=== PATIENT | male | born 1955 | race African-American/Black ===

== ENCOUNTER 2017-05-28 12:52 | Emergency (ER) | payer OTHER ==
[~2017-05-28] VITALS: Ht 180.3 cm; Wt 78.0 kg
--- NOTE | 2017-05-28 13:04 | PHYS DOC ---
Adult General Chief Complaint Chief Complaint: LACERATION/AVULSION HPI HPI Patient is a 61 year old -[place] male who presents with she just left hand. He was using a portable tooth grinder grinding off screws and would when the blade shattered and it kicked back on him. He presents to ER with laceration between his thumb and index finger and a superficial one on his thumb. He states this happened just prior to arrival. He is unsure when his last tetanus shot was. He states he can feel his thumb and move it but doesn't want to at this time. He is right hand dominant. Review of Systems Review of Systems Constitutional: Denies fever or chills [] Eyes: Denies change in visual acuity, redness, or eye pain [] HENT: Denies nasal congestion or sore throat [] Respiratory: Denies cough or shortness of breath [] Cardiovascular: No additional information not addressed in HPI [] GI: Denies abdominal pain, nausea, vomiting, bloody stools or diarrhea [] : Denies dysuria or hematuria [] Musculoskeletal: Denies back pain or joint pain [] Integument: Denies rash or skin lesions [] Neurologic: Denies headache, focal weakness or sensory changes [] Endocrine: Denies polyuria or polydipsia [] Current Medications Current Medications Current Medications Medications (Trade) Dose Ordered Sig/Valarie Start Time Stop Time Status Last Admin Dose Admin Acetaminophen/ Hydrocodone Bitart (Lortab 5/325) 2 tab 1X ONCE 05/28/17 13:30 05/28/17 13:31 DC 05/28/17 13:28 2 TAB Amoxicillin/ Clavulanate Potassium (Augmentin 875/ 125mg) 1 tab 1X ONCE 05/28/17 15:00 05/28/17 15:01 DC Diphtheria/ Tetanus/Acell Pertussis (Boostrix) 0.5 ml ONCE ONCE 05/28/17 13:15 05/28/17 13:16 DC 05/28/17 13:50 0.5 ML Lidocaine/Sodium Bicarbonate (Buffered Lidocaine 1%) 20 ml 1X ONCE 05/28/17 13:45 05/28/17 13:46 DC 05/28/17 13:49 20 ML Neomycin/ Polymyxin/ Bacitracin (Triple Antibiotic Ointment) 1 t STK-MED ONCE 05/28/17 15:04 05/28/17 15:05 DC Allergies Allergies Allergies Coded Allergies Type Severity Reaction Last Updated Verified No Known Drug Allergies 05/28/17 No Physical Exam Physical Exam Constitutional: Well developed, well nourished, no acute distress, non-toxic appearance. [] HENT: Normocephalic, atraumatic, bilateral external ears normal, oropharynx moist, no oral exudates, nose normal. [] Eyes: PERRLA, EOMI, conjunctiva normal, no discharge. [] Neck: Normal range of motion, no tenderness, supple, no stridor. [] Cardiovascular:Heart rate regular rhythm, no murmur [] Lungs & Thorax: Bilateral breath sounds clear to auscultation [] Abdomen: Bowel sounds normal, soft, no tenderness, no masses, no pulsatile masses. [] Skin: 7 cm laceration to the left thenar eminence, sensation intact to light touch of the radial nerve, able to flex and extend at the MCP and DIP joint, able to duct and abduct his thumb, able to make the "okay sign", strength with these are 5 out of 5. 2 cm laceration of the distal left thumb. Back: No tenderness, no CVA tenderness. [] Extremities: No tenderness, no cyanosis, no clubbing, ROM intact, no edema. [] Neurologic: Alert and oriented X 3, normal motor function, normal sensory function, no focal deficits noted. [] Psychologic: Affect normal, judgement normal, mood normal. [] Current Patient Data Vital Signs Vital Signs Date Time Temp Pulse Resp B/P (MAP) Pulse Ox O2 Delivery O2 Flow Rate FiO2 05/28/17 13:01 80 20 Room Air 05/28/17 13:01 98.4 140/82 (101) 98 98.4 EKG EKG [] Radiology/Procedures Radiology/Procedures [facility] [address] [place] [address] IMAGING REPORT Signed PATIENT: MARQUEZ RON ACCOUNT: [id number] : 1955 LOCATION: ER AGE: 61 SEX: M EXAM STATUS: REG ER ORD. PHYSICIAN: SHREYAS LAY MD REASON: laceration PROCEDURE: HAND LEFT 3V Left hand, 3 views, 05/28/2017: History: Thumb laceration No fracture or dislocation is identified. There is a tiny elongated 1 mm foreign body projected over the superficial soft tissues along the volar aspect of the distal end of the thumb. A slightly small radiopacity is projected over the soft tissues of the distal middle finger. There are gas collections in the soft tissues between the first and second metacarpals compatible with a laceration in that region. There are several tiny faint radiopacities projected over this region which may represent debris in the wound or on the surface of the patient. IMPRESSION: 1. No acute bony abnormality is detected. 2. Tiny radiopacities projected over the soft tissues as described above. DICTATED and SIGNED BY: CIRO GROVER MD DATE: 05/28/17 1324 CC: SHREYAS LAY MD; UNKNOWN PCP NAME ~ Impressions: hand laceration Course & Med Decision Making Course & Med Decision Making Pertinent Labs and Imaging studies reviewed. (See chart for details) Patient has tooth lacerations of his left hand, the first one is a 7 cm laceration to the base of his left thumb sensation and motor is intact, 2 similar laceration of the distal left thumb. His tetanus was updated, x-rays were obtained did not show any fractures. He had extensive irrigation of both lacerations secondary to his mechanism of a grinding stone and sawdust. These were repaired and he was given Augmentin his first dose in the ER and is being discharged with 10 additional days. He's had the sutures removed in 9-10 days. Return precautions given. He is agreeable plans being discharged in stable condition at this time. Dragon Disclaimer Dragon Disclaimer This electronic medical record was generated, in whole or in part, using a voice recognition dictation system. Departure Departure Impression: Primary Impression: Hand laceration Disposition: 01 HOME, SELF-CARE Condition: STABLE Referrals: CHRISTOPHE MCCRACKEN MD Patient Instructions: Laceration Care, Adult, [id number] Additional Instructions: You had an extensive laceration of your left hand and it does not appear that you injured any nerves or muscles or tendons within your hand. You have 12 stitches placed in your base of your left thumb and 3 at the tip of your left thumb. You will need to keep this area clean and free of dirt and debris. We'll need to keep covered and use triple antibiotic ointment on it at least twice a day. You will need take oral antibiotics for the next 10 days. He will need to return back to the ER in 10 days to have these stitches removed. You have a total of 15 stitches that need to be taken out in 9-10 days from now. If you notice any signs of infection, redness, you have fever, you have increasing pain or any other concerns please return to the ER sooner. You can follow-up with Dr. Mccracken who is our orthopedic surgeon. Please call his office and let them know that you had a cut there your left hand and are instructed to follow- up with him. If Dr Mccracken is unable to see you, then you need to call [facility] and asked for one other hand surgeons and follow-up with them. Their phone number is [phone]. You are being discharged with 12 tablets of Hope, which is a narcotic pain medicine that you can take to help decrease pain. Do not drive or taking this medicine or drink alcohol as it can impair judgment and make you sleepy. Scripts Amoxicillin/Potassium Clav (AUGMENTIN 875-125 TABLET) 1 Each Tablet 1 TAB PO BID, #20 TAB Prov: SHREYAS LAY MD 05/28/17 Hydrocodone/Apap 5-325 (NORCO 5-325 TABLET) 1 Each Tablet 1-2 TAB PO PRN Q6HRS Y for PAIN, #12 TAB 0 Refills Prov: SHREYAS LAY MD 05/28/17 Laceration Repair Lac Repair Indication: Left thumb laceration Procedure: The patient was placed in the appropriate position and anesthesia around the left thumb laceration with 7 ML's of buffered lidocaine. The area was then cleansed with surgical scrub and 100 mL of sterile saline. The first laceration was and closed with 12 simple interrupted 3-0 nylon sutures. Second laceration was on the distal left thumb and it was closed with 3 simple Th interrupted 3-0 nylon sutures e wound area was then dressed with [WOUND COVERING ]. Total repaired wound length: First laceration was 7 cm in length, second laceration was 2 cm in length The patient tolerated the procedure well. Complications: Complications noted. Problem Qualifiers Primary Impression: Hand laceration Encounter type: initial encounter Foreign body presence: without foreign body Laterality: left Qualified Codes: S61.412A - Laceration without foreign body of left hand, initial encounter SHREYAS LAY MD May 28, 2017 13:04
[2017-05-28] MEDS ORDERED: DIPHTH,PERTUSS(ACELL),TET TOX 0.5 ML DISP.SYRIN. VAX IM ONE (13:15)
[2017-05-28] MEDS ORDERED: HYDROcodone/APAP 5/325MG 1 TAB TABLET PO ONE (13:30)
--- NOTE | 2017-05-28 13:34 | RAD ---
Left hand, 3 views, 05/28/2017: History: Thumb laceration No fracture or dislocation is identified. There is a tiny elongated 1 mm foreign body projected over the superficial soft tissues along the volar aspect of the distal end of the thumb. A slightly small radiopacity is projected over the soft tissues of the distal middle finger. There are gas collections in the soft tissues between the first and second metacarpals compatible with a laceration in that region. There are several tiny faint radiopacities projected over this region which may represent debris in the wound or on the surface of the patient. IMPRESSION: 1. No acute bony abnormality is detected. 2. Tiny radiopacities projected over the soft tissues as described above.
[2017-05-28] MEDS ORDERED: LIDOCAINE 1% / SOD BICARB 8.4% 20 ML VIAL. IJ ONE (13:45)
[2017-05-28] MEDS ORDERED: AMOXICILLIN/K CLAV 875/125MG TABLET. PO ONE (15:00)
[2017-05-28] MEDS ORDERED: NEOMY/BACITR/POLYMYXIN OINT PACKET. TP ONE (15:04)
[2017-05-28] MEDS ORDERED: HYDR-971 PO (15:21)
[2017-05-28] MEDS ORDERED: AMOX1TAB61 PO (15:21)
[2017-05-28 15:45] VITALS: BP 142/75
== END 2017-05-28 15:44 | disposition home or self-care (01) ==
LOC: ER 12:52
DX: S61.012A Laceration without foreign body of left thumb without damage to nail, initial encounter (principal); Y28.8XXA Contact with other sharp object, undetermined intent, initial encounter; Y93.89 Activity, other specified; Y99.8 Other external cause status; Y92.89 Other specified places as the place of occurrence of the external cause
CPT/HCPCS: 12004; 73130; 90471; 90715; 99284-25

== ENCOUNTER 2017-06-07 11:40 | Emergency (ER) | payer OTHER ==
[~2017-06-07] VITALS: Ht 180.3 cm; Wt 76.7 kg
[~2017-06-07 11:40] MED LIST: AMOX1TAB61 PO; HYDR-971 PO
--- NOTE | 2017-06-07 12:36 | PHYS DOC ---
Past Medical History Past Medical History: Hypertension Past Surgical History: No Surgical History Alcohol Use: None Drug Use: None Adult General Chief Complaint Chief Complaint: WOUND RECHECK/SUTURE REMOVAL HPI HPI Patient is a 61 year old male who presents for suture removal from the left hand. Sutures have been in for the last 10 days. Review of Systems Review of Systems Constitutional: Denies fever or chills [] Musculoskeletal: Denies back pain or joint pain [] Integument: Suture removal from the left eye Neurologic: Denies headache, focal weakness or sensory changes [] Allergies Allergies Allergies Coded Allergies Type Severity Reaction Last Updated Verified No Known Drug Allergies 05/28/17 No Physical Exam Physical Exam Constitutional: Well developed, well nourished, no acute distress, non-toxic appearance. [] Skin: Warm, dry, web space between the thumb and index finger with a well approximated laceration site with sutures. No signs of infection to the area. Back: No tenderness, no CVA tenderness. [] Extremities: No tenderness, no cyanosis, no clubbing, ROM intact, no edema. [] Neurologic: Alert and oriented X 3, normal motor function, normal sensory function, no focal deficits noted. [] Psychologic: Affect normal, judgement normal, mood normal. [] Current Patient Data Vital Signs Vital Signs Date Time Temp Pulse Resp B/P (MAP) Pulse Ox O2 Delivery O2 Flow Rate FiO2 06/07/17 11:55 98.1 81 18 100 Room Air 98.1 EKG EKG [] Radiology/Procedures Radiology/Procedures [] Course & Med Decision Making Course & Med Decision Making Pertinent Labs and Imaging studies reviewed. (See chart for details) Patient is in the ED for suture removal. Sutures were removed from his left hand by the marine electronics technician. Provided wound care instructions and return precautions. Follow-up with his PCP in 1-2 weeks. Dragon Disclaimer Dragon Disclaimer This electronic medical record was generated, in whole or in part, using a voice recognition dictation system. Departure Departure Impression: Primary Impression: Encounter for removal of sutures Disposition: 01 HOME, SELF-CARE Condition: STABLE Referrals: AMEE VOGT (PCP) Follow-up with your own doctor in 1-2 weeks as needed Patient Instructions: Suture Removal-Brief Additional Instructions: You had stitches removed from the left hand. Keep the area clean and dry. You can shower. Leave the area open to air if it's not draining. Follow-up with your own doctor in 1-2 weeks as needed. Continue applying Neosporin to the area twice a day for the next 7 days. CASPER JONES APRN Jun 07, 2017 12:36
== END 2017-06-07 12:43 | disposition home or self-care (01) ==
LOC: ER 11:40
DX: S61.412D Laceration without foreign body of left hand, subsequent encounter (principal); I10 Essential (primary) hypertension; X58.XXXD Exposure to other specified factors, subsequent encounter
CPT/HCPCS: 99281

== ENCOUNTER → 2020-03-17 | Outpatient (CLI) | payer OTHER ==
[2017-06-07 11:55] VITALS: BP 123/72
[~2020-03-17] MED LIST changes: +HYDR-3164 PO; -HYDR-971 PO
[2020-03-17 11:56] LABS: BASO % 1 % (0-3); EOS # 0.6 x10^3/uL (0.0-0.7); EOS % 10 % (0-3); HEMATOCRIT 44.4 % (39.0-53.0); HEMOGLOBIN 15.1 g/dL (13.0-17.5); LYMPH # 1.5 x10^3/uL (1.0-4.8); LYMPH % 24 % (24-48); MEAN CORPUSCULAR HEMOGLOBIN 28 pg (25-35); MEAN CORPUSCULAR HGB CONC 34 g/dL (31-37); MEAN CORPUSCULAR VOLUME 82 fL (79-100); MONO # 0.5 x10^3/uL (0.0-1.1); MONO % 8 % (0-9); NEUT # 3.7 x10^3/uL (1.8-7.7); NEUT % 58 % (31-73); PLATELET COUNT 196 x10^3/uL (140-400); RED BLOOD COUNT 5.43 x10^6/uL (4.30-5.70); RED CELL DISTRIBUTION WIDTH 15.3 % (11.5-14.5); WHITE BLOOD COUNT 6.3 x10^3/uL (4.0-11.0)
[2020-03-17 12:07] LABS: CALCIUM 8.7 mg/dL (8.5-10.1); CREATININE 1.4 mg/dL (0.7-1.3); GFR 61.9; POTASSIUM 3.9 mmol/L (3.5-5.1)
== END ==
LOC: LAB 11:22
PROVIDERS: ATTEND Internal Medicine Pulmonary Disease
DX: R06.02 Shortness of breath (principal)
CPT/HCPCS: 36415; 80048; 85025

== ENCOUNTER → 2020-03-28 | Outpatient (CLI) | payer OTHER ==
[2017-06-07 11:55] VITALS: BP 123/72
--- NOTE | 2020-03-28 16:13 | RAD ---
EXAM: PET W CT SKULL TO MIDTHIGH EXAM DATE: 03/28/2020 INDICATION: Reason: ABNORMAL CT 91.8 / Spl. Instructions: / History: RADIOPHARMACEUTICAL: 13.6 mCi of F-18 Fluorodeoxyglucose (FDG) I.V. via the left antecubital fossa. TECHNIQUE: Patient weight: 165 pounds. Following at least four-hour fasting, the patient's blood glucose was 99 mg/dl. Approximately 1 hour after administration of FDG, overlapping emission scanning was performed from the orbital meatal line through the pelvis. A low-dose CT was performed for attenuation correction purposes and anatomic localization. Fused images of PET and CT were reviewed. Any standardized uptake values (SUV) reported are maximum values within a volume region of interest, expressed in gm/ml. COMPARISON: No relevant comparisons currently available. FINDINGS: PET: In the head and neck, physiologic distribution of uptake is mild prominence in the bilateral salivary glands and thyroid gland. In the chest, no abnormal FDG uptake is identified. In the abdomen and pelvis, physiologic activity in the bowel and urinary tract is noted. No abnormal FDG uptake. In the skeletal system, no abnormal FDG uptake. CT: In the head and neck, minimal mucosal thickening in the paranasal sinuses is present, best appreciated in the bilateral maxillary antra and the ethmoid air cells. In the chest, an oval circumscribed soft tissue density mass anterior to the [place] with a mean Hounsfield units measurement of 62 is noted. It measures 3.1 cm transverse by 1.9 cm AP by 4.0 cm craniocaudal. Otherwise, no mediastinal mass is apparent. No hilar adenopathy identified on noncontrast CT. Calcified left hilar lymph nodes. The lungs show a few subcentimeter noncalcified pulmonary nodules best appreciated in the anterior lateral right lower lobe measuring 3 mm. Densely calcified nodule in the anterior left lower lobe also noted. No pneumothorax or pleural effusion. No dominant lung nodule or mass. The abdomen and pelvis show scattered arterial calcifications. No mass or adenopathy. No ascites. No acute or aggressive osseous lesions. IMPRESSION: 1. There is a circumscribed oval precarinal soft tissue mass showing no abnormal FDG uptake. This favors a benign etiology such as an enteric tube location cyst but clinical follow-up is recommended. Correlation with any previous imaging if available could be helpful as well. 2. There is also evidence of granulomatous disease with calcified left hilar nodes and left lower lobe pulmonary nodule. In this setting, are noncalcified pulmonary nodules less than 5 mm in size best appreciated in the right upper and lower lobes. Electronically signed by: Eleazar Morales MD (03/28/2020 4:11 PM) [id number]
== END ==
LOC: PETSC 09:37
PROVIDERS: ATTEND Internal Medicine Pulmonary Disease
DX: R91.8 Other nonspecific abnormal finding of lung field (principal)
CPT/HCPCS: 78815; A9552

== ENCOUNTER → 2020-11-24 | Outpatient (CLI) | payer OTHER ==
[2017-06-07 11:55] VITALS: BP 123/72
--- NOTE | 2020-11-24 08:48 | RAD ---
CT THORAX WO INDICATION: ABNORMAL CT . COMPARISON STUDY: 03/28/2020,. TECHNIQUE: Unenhanced axial images were obtained through the lungs and upper abdomen. Coronal and sa gittal multiplanar reconstructions were also obtained. PQRS compliance statement: One or more of the following individualized dose reduction techniques were utilized for this examinat ion: 1. Automated exposure control 2. Adjustment of the mA and/or kV according to patient size 3. Use of iterative reconstruction technique FINDINGS: Lungs and Airways: No pulmonary mass or consolidation. Right lower lobe perifissural intrapulmonary l ymphoid tissue. Calcified pulmonary granulomas. Centrilobular emphysema. Normal central airways. Pleura: The pleural spaces are normal. Heart and Mediastinum: The visualized thyroid gland is normal in size and attenuation. No axillary or supraclavicular lymphadenopathy. Calcified left hilar lymph nodes consistent with remote granulomato us disease. Normal cardiac size. No pericardial effusion. Coronary artery atherosclerotic disease. At herosclerosis of the thoracic aorta. Circumscribed ovoid right lower paratracheal/subcarinal mass tianna suring 1.6 x 3.1 x 4.4 cm (AP by TV by CC) is unchanged from the prior exam when measured in the same fashion, 30 Hounsfield units. Abdomen: The visualized abdominal organs demonstrate no abnormality. Bones and Soft Tissues: Degenerative changes of the spine. 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 Consider continued surveillance to establish long- term stability, versus comparison with prior outside imaging. Electronically signed by: Elvin Black MD (11/24/2020 8:45 AM) [id number]
== END ==
LOC: CT 09:06
PROVIDERS: ATTEND Internal Medicine Pulmonary Disease
DX: R93.89 Abnormal findings on diagnostic imaging of other specified body structures (principal)
CPT/HCPCS: 71250

== ENCOUNTER → 2021-11-30 | Outpatient (CLI) | payer OTHER ==
[2017-06-07 11:55] VITALS: BP 123/72
--- NOTE | 2021-11-30 14:36 | RAD ---
EXAM: CT CHEST WITHOUT CONTRAST HISTORY: Lung nodule COMPARISON: CT chest 11/24/2020 TECHNIQUE: Helical CT of the chest performed without contrast. Coronal and sagittal reformats were o btained. One or more of the following individualized dose reduction techniques were utilized for this examinat ion: 1. Automated exposure control 2. Adjustment of the mA and/or kV according to patient size 3. Use of iterative reconstruction technique. FINDINGS: Thyroid gland and thoracic inlet: The visualized portion of the thyroid gland is normal. Heart and great vessels: The heart is normal in size. No pericardial effusion. There are coronary art macario calcifications. Thoracic aorta is normal in caliber. Mediastinum and isaias: Unchanged circumscribed subcarinal mediastinal mass measuring 4.0 x 2.2 x 3.1 c m. Lungs and pleura: Unchanged 4 mm nodule in the anterior right lower lobe abutting the fissure (image 21). There is a calcified granuloma in the left lower lobe. Mild centrilobular emphysema. No pleural effusion. Chest wall and axillae: No axillary lymphadenopathy. Upper abdomen: 2 subcentimeter hypodensities in the liver measuring up to 7 mm are unchanged and may be cysts or hemangiomas. Bones: No acute osseous abnormality. IMPRESSION: 1. Unchanged subcarinal mediastinal mass. 2. Unchanged 4 mm nodule in the right lower lobe abutting the fissure. 3. Mild centrilobular emphysema. Electronically signed by: Adelaida De La Cruz MD (11/30/2021 2:34 PM) [id number]
== END ==
LOC: CT 08:54
PROVIDERS: ATTEND Internal Medicine Pulmonary Disease
DX: R91.1 Solitary pulmonary nodule (principal); J98.59 Other diseases of mediastinum, not elsewhere classified; J43.2 Centrilobular emphysema; I25.10 Atherosclerotic heart disease of native coronary artery without angina pectoris; K76.89 Other specified diseases of liver
CPT/HCPCS: 71250